=== PATIENT | female | born 1975 | race Two or more races ===

== ENCOUNTER → 2016-06-28 | Outpatient (CLI) | payer OTHER ==
[~2016-06-28] MED LIST: MULT-208 PO
== END | disposition home or self-care (01) ==
LOC: STAR 12:29
PROVIDERS: ATTEND Otolaryngology
DX: Z02.9 Encounter for administrative examinations, unspecified (principal)

== ENCOUNTER 2016-07-03 11:03 | Day surgery (SDC) | payer OTHER ==
[~2016-07-03] VITALS: Ht 157.5 cm; Wt 56.0 kg
[~2016-07-03 11:03] MED LIST changes: +OXYMETAZOLINE NASAL SPRAY 0.05%, 15ML ONE
[2016-07-03] MEDS ORDERED: LACTATED RINGERS 1,000 ML IV SCH (11:04)
[2016-07-03] MEDS ORDERED: FENTANYL PF 100 MCG/2ML ONE ×3 (11:46→12:56)
[2016-07-03] MEDS ORDERED: ONDANSETRON 2MG/ML, 2ML IVPush PRN (12:00)
[2016-07-03] MEDS ORDERED: PROMETHAZINE 25 MG/ML, 1ML IV PRN (12:00)
[2016-07-03] MEDS ORDERED: MIDAZOLAM 1 MG/ML, 2ML IV PRN (12:00)
[2016-07-03] MEDS ORDERED: hydrALAzine 20 MG/ML, 1ML IV PRN (12:00)
[2016-07-03] MEDS ORDERED: OXYcodone 5 MG/5 ML ORAL.SOL UDC PO PRN (12:00)
[2016-07-03] MEDS ORDERED: HYDROmorphone 1 MG/ML, 1ML IV PRN (12:00)
[2016-07-03] MEDS ORDERED: MEPERIDINE/PF 25MG/0.5ML IVPush PRN (12:00)
[2016-07-03] MEDS ORDERED: LABETALOL 5MG/ML, 20ML IV PRN (12:00)
[2016-07-03] MEDS ORDERED: DEXAMETHASONE 4 MG/ML, 1ML ONE (12:01)
[2016-07-03] MEDS ORDERED: SUCCINYLCHOLINE 20 MG/ML, 10ML ONE (12:01)
[2016-07-03] MEDS ORDERED: PROPOFOL 10 MG/ML, 20ML ONE (12:01)
[2016-07-03] MEDS ORDERED: ONDANSETRON 2MG/ML, 2ML ONE (12:01)
[2016-07-03 12:14] LABS: HCG UR OBC PASS
[2016-07-03] MEDS ORDERED: OXYcodone 5 MG/5 ML ORAL.SOL UDC ONE (12:57)
[2016-07-03] MEDS: FENTANYL PF 100 MCG/2ML IV PRN ×3 (12:59→13:35)
[2016-07-03] MEDS ORDERED: CEFAZOLIN PMX 2GM/50ML 50 ML IV ONE (13:00)
== END 2016-07-03 15:15 | disposition home or self-care (01) ==
LOC: OUT 11:03
PROVIDERS: ATTEND Otolaryngology
DX: J35.01 Chronic tonsillitis (principal)
CPT/HCPCS: 31535; 42826; 81025; 88304; 88305; 88331; J0330; J0690; J1100; J2405; J2704; J3010

== ENCOUNTER 2017-10-24 10:32 | Day surgery (SDC) | payer OTHER ==
[~2017-10-24] VITALS: Ht 157.5 cm; Wt 58.0 kg
[~2017-10-24 10:32] MED LIST changes: -OXYMETAZOLINE NASAL SPRAY 0.05%, 15ML ONE
[2017-10-24] MEDS ORDERED: LACTATED RINGERS 1,000 ML IV SCH (10:58)
[2017-10-24 11:15] VITALS: BP 99/62
[2017-10-24 11:20] LABS: HCG UR SG 1.025 (1.003-1.030)
[2017-10-24] MEDS ORDERED: GABAPENTIN 300 MG CAPSULE PO ONE (11:30)
[2017-10-24] MEDS ORDERED: ACETAMINOPHEN 500 MG TABLET PO ONE (11:30)
[2017-10-24] MEDS ORDERED: OXYcodone IR 5MG TABLET PO ONE (11:30)
[2017-10-24] MEDS ORDERED: ONDANSETRON ODT 8 MG PO ONE (11:30)
[2017-10-24] MEDS ORDERED: SCOPOLAMINE PATCH, 1.5MG PATCH.TD72 TD ONE (11:30)
[2017-10-24] MEDS ORDERED: BUPIVACAINE/PF-EPI 0.25% 1:200K ONE (12:39)
[2017-10-24] MEDS ORDERED: MIDAZOLAM 1 MG/ML, 2ML ONE (12:57)
[2017-10-24] MEDS ORDERED: FENTANYL PF 100 MCG/2ML ONE (12:57)
[2017-10-24] MEDS ORDERED: PROPOFOL 10 MG/ML, 20ML ONE (13:11)
[2017-10-24] MEDS ORDERED: ONDANSETRON 2MG/ML, 2ML ONE (13:11)
[2017-10-24] MEDS ORDERED: DEXAMETHASONE 4 MG/ML, 1ML ONE (13:11)
[2017-10-24] MEDS ORDERED: KETOROLAC 30 MG/1 ML ONE (13:11)
[2017-10-24] MEDS ORDERED: SUCCINYLCHOLINE 20 MG/ML, 10ML ONE (13:11)
[2017-10-24] MEDS ORDERED: ROCURONIUM 10 MG/ML,10ML ONE (13:11)
[2017-10-24] MEDS ORDERED: ALBUTEROL SULFATE 2.5 MG/3 ML NPPB PRN (14:00)
[2017-10-24] MEDS ORDERED: HYDROmorphone 1 MG/ML, 1ML IV PRN (14:00)
[2017-10-24] MEDS ORDERED: EPHEDRINE 50 MG/ML, 1ML IVPush PRN (14:00)
[2017-10-24] MEDS ORDERED: ONDANSETRON ODT 8 MG PO PRN (14:00)
[2017-10-24] MEDS ORDERED: PROMETHAZINE 25 MG/ML, 1ML IV PRN (14:00)
[2017-10-24] MEDS ORDERED: HYDROcodone/APAP 7.5-325MG/15ML UDC PO PRN (14:00)
[2017-10-24] MEDS ORDERED: LABETALOL 5MG/ML, 20ML IV PRN (14:00)
[2017-10-24] MEDS ORDERED: MIDAZOLAM 1 MG/ML, 2ML IV PRN (14:00)
[2017-10-24] MEDS ORDERED: hydrALAzine 20 MG/ML, 1ML IV PRN (14:00)
[2017-10-24] MEDS ORDERED: FENTANYL PF 100 MCG/2ML IV PRN (14:00)
[2017-10-24] MEDS ORDERED: MEPERIDINE/PF 25MG/0.5ML IVPush PRN (14:00)
[2017-10-24] MEDS ORDERED: OXYcodone 5 MG/5 ML ORAL.SOL UDC PO PRN (14:00)
[2017-10-24] MEDS ORDERED: HYDROcodone/APAP 7.5-325MG/15ML UDC ONE (14:36)
== END 2017-10-24 16:10 | disposition home or self-care (01) ==
LOC: OUT 10:32
PROVIDERS: ATTEND Specialist
DX: Z30.2 Encounter for sterilization (principal)
CPT/HCPCS: 58670; 81025; J0330; J1100; J1885; J2250; J2405; J2704; J3010; J7120; Q0162